=== PATIENT | female | born 1990 | race Caucasian/White ===

== ENCOUNTER 2020-06-12 12:12 | Outpatient (REF) | payer OTHER, SELFPAY ==
[2020-06-12 13:23] LABS: COVID-19 Test Negative (Negative)
== END 2020-06-12 12:13 | disposition home or self-care (01) ==
LOC: HO.LAB 12:12
PROVIDERS: Visit Provider Internal Medicine
DX: Z20.822 Contact with and (suspected) exposure to COVID-19 (principal)
CPT/HCPCS: 36415; 87635; C9803

== ENCOUNTER 2020-11-15 11:54 | Outpatient (REF) | payer OTHER, SELFPAY | END 2020-11-15 11:55 | disposition home or self-care (01) | LOC: HO.LAB 11:54 | PROVIDERS: PCP Internal Medicine; Visit Provider Internal Medicine | DX: Z20.822 Contact with and (suspected) exposure to COVID-19 (principal) | CPT/HCPCS: C9803; U0003; U0005 ==

== ENCOUNTER 2021-08-05 20:10 | Emergency (ER) | payer OTHER, SELFPAY ==
[2021-08-05 20:59] VITALS: BP 136/84; PULSE 60; RESP 18; TEMP 36.8; O2SAT 99; BMI 39.9
[2021-08-05] MEDS: Ketorolac Tromethamine 60 MG/2 ML VIAL IM (22:00)
--- NOTE | 2021-08-05 22:04 | ED.DENTAL ---
HPI - Dental/Oral General Chief complaint: Dental/Oral Stated complaint: chipped tooth, possibly infected Time Seen by Provider: 08/05/21 21:50 Source: patient Mode of arrival: ambulatory Limitations: no limitations History of Present Illness HPI Narrative: Patient comes to the emergency room asking for pain control for his molar pain. Patient has already been seen by urgent care, she was prescribed amoxicillin 500 t.i.d.. Patient has an appointment on . Patient denies pus drainage, no fever chills. Patient states that she chipped a molar biting ice Related Data Previous Rx's Medication Instructions Recorded ketorolac 10 mg tablet 10 mg PO TID PRN pain #10 tabs 08/05/21 Allergies Allergy/AdvReac Type Severity Reaction Status Date / Time No Known Allergies Allergy Unverified 11/04/19 16:13 Review of Systems Review of Systems: Constitutional : No Weight loss, No Fever, No Chills, No Night Sweats, No Fatigue, No Malaise ENT/Mouth : No Hearing loss, No Ear Pain, No Nasal Congestion, No Sinus Pain, No Hoarseness, No sore throat, No Rhinorrhea, No Swallowing Difficulty, complaining of dental pain Eyes: No Eye Pain, No Swelling, No Redness, No Foreign Body, No Discharge, No Vision Changes Cardiovascular : No Chest Pain, No SOB, No Dyspnea on Exertion, No Orthopnea, No Edema, No Palpitations Respiratory : No Cough, No Sputum, No Wheezing, No Smoke Exposure, No Dyspnea Gastrointestinal : No Nausea, No Vomiting, No Diarrhea, No Constipation, No abdominal Pain, No Hematochezia, No Melena Genitourinary : no irregular bleeding, No Dysuria, No Urinary Frequency, No Hematuria, No Urinary Incontinence, No Urgency, No Flank Pain, No Urinary Flow Changes, No Hesitancy Musculoskeletal : No joint pain, No Myalgias, No Joint Swelling Skin : No Skin Lesions, No rash Neuro : No Weakness, No Numbness, No Paresthesias, No Loss of Consciousness, No Dizziness, No Headache Psych : No Anxiety/Panic, No Depression, No SI/HI/AH/VH, No Social Issues, Heme/Lymph: No Bruising, No Bleeding,No Lymphadenopathy Endocrine : No Polyuria, No Polydipsia, No Temperature Intolerance PMFSH Social History Social History Advance Directives: No Advance Directives Information Provided: Yes Physical Exam Vital Signs: Vital Signs: Last Vital Signs Temp 98.3 F 08/05/21 20:59 Pulse 60 08/05/21 20:59 Resp 18 08/05/21 20:59 BP 136/84 08/05/21 20:59 Pulse Ox 99 08/05/21 20:59 O2 Del Method 08/05/21 20:59 BMI result Body Mass Index 39.9 Const: Other: Appearance: Alert. Oriented X3. No acute distress. Eyes: Pupils equal, round and reactive to light. ENT: Pharynx normal. Poor dentition in molars bilaterally maxillary side. Chip more on the left side, no abscess Neck: Normal inspection. Neck supple. No lymph nodes noted. No crepitus CVS: Normal heart rate and rhythm. Pulses normal. Normal S1 and S2 Respiratory: No respiratory distress. Breath sounds normal. No Wheezing. No rales Abdomen: Soft and nontender. No rigidity. No distention. Skin: Skin warm and dry. Normal skin color. Normal skin turgor. Extremities: No lower extremity edema. No Lacerations. No Rash Neuro: Oriented X 3. No motor deficit. No sensory deficit. Moving all extremities. No slurred speech. CN 2 through 12 grossly intact Psych: calm, cooperative, normal affect Course Course Course Narrative: Patient is already on the correct antibiotic. Patient will be given IM Toradol and will receive a prescription as well. Discharge Plan Discharge Clinical Impression: Toothache Patient Disposition: Home, Self-Care Instructions: Toothache (ED) Additional Instructions: Please follow-up with your primary care physician tomorrow. If you have any worsening or new symptoms, please return to the emergency room or call 911 Prescriptions: New ketorolac 10 mg tablet 10 mg PO TID PRN (Reason: pain) Qty: 10 0RF Rx Instructions: Do not use NSAIDs/ibuprofen/Aleve with this medication, only Tylenol for breakthrough pain
== END 2021-08-05 23:03 | disposition home or self-care (01) ==
PROVIDERS: Emergency Provider Emergency Medicine; PCP Internal Medicine
DX: K03.81 Cracked tooth (principal); K08.89 Other specified disorders of teeth and supporting structures
CPT/HCPCS: 96372; 99283; 99284; J1885

== ENCOUNTER 2021-11-20 07:17 | Emergency (ER) | payer OTHER, SELFPAY ==
[2021-11-20 07:23] VITALS: BP 133/82; PULSE 71; RESP 18; TEMP 36.4; O2SAT 100; BMI 33.4
--- NOTE | 2021-11-20 07:42 | ED_ITS ---
HPI - Dental/Oral General Chief complaint: Dental/Oral Stated complaint: abases tooth making face swollen. Time Seen by Provider: 11/20/21 07:37 Source: patient Mode of arrival: ambulatory Limitations: no limitations History of Present Illness HPI Narrative: recurrent dental infections having issues with insurance company to get root canal covered Location: Tooth # (21/22) Onset (ago): day(s) (on and off for weeks worse today ) Duration: worsening Severity: moderate Relieving factors: nothing Exacerbating factors: chewing Context: history of dental caries Associated symptoms: gum swelling Treatment prior to arrival: none Related Data Previous Rx's Medication Instructions Recorded ketorolac 10 mg tablet 10 mg PO TID PRN pain #10 tabs 08/05/21 amoxicillin 875 mg-potassium 1 tab PO BID #14 tabs 11/20/21 clavulanate 125 mg tablet Allergies Allergy/AdvReac Type Severity Reaction Status Date / Time No Known Allergies Allergy Unverified 11/04/19 16:13 Review of Systems Review of Systems: Constitutional : No Fever, No Chills ENT/Mouth : No swallowing difficulty, no change in voice, positive dental pain, positive jaw pain, positive facial swelling Eyes: No Eye Pain, No Swelling Cardiovascular : No Chest Pain, No SOB Respiratory : No Cough, No Sputum Gastrointestinal : No Nausea, No Vomiting, No Diarrhea Genitourinary : No Dysuria Musculoskeletal : No Myalgias Skin : No rash Neuro : No Weakness, No Numbness, No Headache PMFSH Past Medical History Attestation statement: The following information was validated with the patient. Medical History Degenerative disc disease Dental decay Social History Social History (Updated 11/20/21 @ 07:55 by Sherlyn Medina DO) Patient Tobacco Use Status: Tobacco use Unknown Advance Directives: No Advance Directives Information Provided: No Physical Exam Vital Signs: Vital Signs: Last Vital Signs Temp 97.5 F 11/20/21 07:23 Pulse 71 11/20/21 07:23 Resp 18 11/20/21 07:23 BP 133/82 11/20/21 07:23 Pulse Ox 100 11/20/21 07:23 O2 Del Method 11/20/21 07:23 BMI result Body Mass Index 33.4 Appearance: Alert. Oriented X3. No acute distress. Eyes: Pupils equal, round and reactive to light. ENT: L side of face mild swelling, fluctuance mild and hyperemia to L lower gums no shelli abscess felt, no trismus, dental decay noted L lower teeth Neck: Normal inspection. Neck supple. CVS: Normal heart rate and rhythm. Pulses normal. Respiratory: No respiratory distress. Breath sounds normal. Abdomen: Soft and non-tender. Skin: Skin warm and dry. Normal skin color. Extremities: No lower extremity edema. Neuro: Oriented X 3. No motor deficit. No sensory deficit. MDM - Dental/Oral MDM Narrative Medical decision making narrative: 31 yo female recurrent dental infections - new insurance issues with dentist needs root canal. has swelling on L side mild - no concern for deeper space in fection. not toxic, no trismus. will start on augmentin and DC to dentist Discharge Plan Discharge Clinical Impression: Dental infection Patient Disposition: Home, Self-Care Instructions: Dental Abscess (ED) Additional Instructions: return to ED for any worsening symptoms or concerns return if no improvement, worse swelling, fevers take probiotic or yogurt while on antibiotic follow up with dentist as soon as possible Prescriptions: New amoxicillin-pot clavulanate 875-125 mg tablet 1 tab PO BID Qty: 14 0RF No Action ketorolac 10 mg tablet 10 mg PO TID PRN (Reason: pain) Qty: 10 0RF Rx Instructions: Do not use NSAIDs/ibuprofen/Aleve with this medication, only Tylenol for breakthrough pain
== END 2021-11-20 08:38 | disposition home or self-care (01) ==
PROVIDERS: Emergency Provider Emergency Medicine; PCP Internal Medicine
DX: K04.7 Periapical abscess without sinus (principal); Z79.899 Other long term (current) drug therapy
CPT/HCPCS: 99282; 99283

== ENCOUNTER 2022-04-21 12:28 | Emergency (ER) | payer OTHER, SELFPAY ==
[2022-04-21 12:45] VITALS: BP 132/69; PULSE 69; RESP 18; TEMP 36.4; O2SAT 99; BMI 36.8
--- NOTE | 2022-04-21 12:45 | ED_ITS ---
HPI - Headache General Chief Complaint: Headache Stated Complaint: Headache X 1 Wk Time Seen by Provider: 04/21/22 14:14 Related Data Previous Rx's Medication Instructions Recorded ketorolac 10 mg tablet 10 mg PO TID PRN pain #10 tabs 08/05/21 amoxicillin 875 mg-potassium 1 tab PO BID #14 tabs 11/20/21 clavulanate 125 mg tablet [id number]-[id number] 1 cap PO Q6H PRN pain 5 days #20 04/21/22 50 mg-300 mg-40 mg capsule caps (Fioricet) naproxen 500 mg tablet 500 mg PO BID PRN pain 7 days #14 04/21/22 tabs Allergies Allergy/AdvReac Type Severity Reaction Status Date / Time No Known Allergies Allergy Unverified 11/04/19 16:13 [facility] Past Medical History Medical History Degenerative disc disease Dental decay Social History Social History Patient Tobacco Use Status: Tobacco use Unknown Advance Directives: No Advance Directives Information Provided: No Physical Exam Vital Signs: Vital Signs: Last Vital Signs Temp 98 F 04/21/22 18:19 Pulse 75 04/21/22 18:19 Resp 18 04/21/22 12:45 BP 150/87 H 04/21/22 18:19 Pulse Ox 98 04/21/22 18:19 O2 Del Method 04/21/22 18:19 BMI result Body Mass Index 36.8 Course Course Course Narrative: This is a rapid medical exam. Deferred additional HPI, ROS, PE to primary provider. 32 yo female with history of migraines, anxiety, hypothyroidism, DDD, insominia here with complaints of headache radiating to jaw/neck, dizzy, photophobia x 1 week. Not worsened with position changes. Doesn't feel like migraines. Seen by PCP 4 days ago and started on Augmentin with continued symptoms. Will obtain COVID testing, UA/ur preg. VSS. Medications Administered Discontinued Medications Generic Name Dose Route Start Last Admin Trade Name Freq PRN Reason Stop Dose Admin Acetaminophen/Butalbital/Caffeine 2 tab 04/21/22 14:52 04/21/22 16:31 Butalb/Acetamin/Caff 50/325/40 Tablet PO 04/21/22 14:53 2 tab ONCE ONE Administration Diphenhydramine HCl 50 mg 04/21/22 14:51 04/21/22 16:32 Diphenhydramine Hcl 50 Mg/Ml Vial IVPUSH 04/21/22 14:52 50 mg ONCE ONE Administration Ketorolac Tromethamine 30 mg 04/21/22 14:51 04/21/22 16:32 Ketorolac Tromethamine 30 Mg/Ml Vial IVPUSH 04/21/22 14:52 30 mg ONCE ONE Administration Metoclopramide HCl 10 mg 04/21/22 14:51 04/21/22 16:31 Metoclopramide Hcl 10 Mg/2 Ml Vial IVPUSH 04/21/22 14:52 10 mg ONCE ONE Administration Medical Decision Making Lab Data 04/21/22 16:15 04/21/22 16:15 Labs: Lab Results 04/21/22 04/21/22 04/21/22 Range/Units 12:58 14:03 14:03 WBC (4.8-10.8) X10*3/uL RBC (4.20-5.50) X10*6/uL Hgb (12.0-16.0) g/dl Hct (37.0-47.0) % MCV (80.0-98.0) fL MCH (27.0-33.0) pg MCHC (31.0-35.0) g/dl RDW (11.0-16.0) % Plt Count (160-400) X10*3/uL MPV (9.4-12.3) fL Immature Gran % (Auto) (0.0-0.4) % Neut % (Auto) (45-73) % Lymph % (Auto) (20-40) % [place] % (Auto) (2-11) % Eos % (Auto) (0-4) % Baso % (Auto) (0-2) % Lymph # (Auto) (1.2-4.9) X10*3/uL [place] # (Auto) (0.1-1.2) X10*3/uL Eos # (Auto) (0.0-0.4) X10*3/uL Baso # (Auto) (0.0-0.2) X10*3/uL Abs Immat Gran (auto) (0.00-0.03) X10*3/uL Absolute Neuts (auto) (2.0-8.3) x10*3/uL Absolute Nucleated RBC (0.0-0.012) X10*3/uL Nucleated RBC % (auto) (0.0-0.2) /100WBC Sodium (135-145) mmol/L Potassium (3.3-5.1) mmol/L Chloride (96-108) mmol/L Carbon Dioxide (22-29) mmol/L Anion Gap (12-20) BUN (9-16) mg/dL Creatinine (0.5-1.4) mg/dL Estim Creat Clear Calc Estimated GFR Random Glucose (60-115) mg/dL Calcium (8.4-10.2) mg/dL Total Bilirubin (0.0-1.0) mg/dL AST (5-31) U/L ALT (0-31) U/L Alkaline Phosphatase (39-117) U/L Total Protein (6.5-8.0) g/dL Albumin (3.5-5.0) g/dL Urine Color Yellow Urine Appearance Turbid Urine pH 5.5 (5.0-9.0) Ur Specific [place] >= 1.030 H (1.005-1.025) Urine Protein Trace (Neg-Trace) mg/dL Urine Glucose (UA) Negative (Negative) mg/dL Urine Ketones 40 (Negative) mg/dL Urine Blood Negative (Negative) Urine Nitrite Negative (Negative) Ur Leukocyte Esterase Negative (Negative) Urine Test NEGATIVE (NEGATIVE) COVID-19 (MIGUELINA) Negative (Negative) COVID-19 Clin Com See Note 04/21/22 04/21/22 Range/Units 16:15 16:15 WBC 9.8 (4.8-10.8) X10*3/uL RBC 5.22 (4.20-5.50) X10*6/uL Hgb 14.6 (12.0-16.0) g/dl Hct 44.6 (37.0-47.0) % MCV 85.4 (80.0-98.0) fL MCH 28.0 (27.0-33.0) pg MCHC 32.7 (31.0-35.0) g/dl RDW 12.0 (11.0-16.0) % Plt Count 270 (160-400) X10*3/uL MPV 9.9 (9.4-12.3) fL Immature Gran % (Auto) 0.3 (0.0-0.4) % Neut % (Auto) 79.5 H (45-73) % Lymph % (Auto) 15.7 L (20-40) % [place] % (Auto) 3.4 (2-11) % Eos % (Auto) 0.3 (0-4) % Baso % (Auto) 0.8 (0-2) % Lymph # (Auto) 1.5 (1.2-4.9) X10*3/uL [place] # (Auto) 0.3 (0.1-1.2) X10*3/uL Eos # (Auto) 0.0 (0.0-0.4) X10*3/uL Baso # (Auto) 0.1 (0.0-0.2) X10*3/uL Abs Immat Gran (auto) 0.03 (0.00-0.03) X10*3/uL Absolute Neuts (auto) 7.8 (2.0-8.3) x10*3/uL Absolute Nucleated RBC 0.000 (0.0-0.012) X10*3/uL Nucleated RBC % (auto) 0.0 (0.0-0.2) /100WBC Sodium 140 (135-145) mmol/L Potassium 4.5 (3.3-5.1) mmol/L Chloride 107 (96-108) mmol/L Carbon Dioxide 20 L (22-29) mmol/L Anion Gap 18 (12-20) BUN 14 (9-16) mg/dL Creatinine 0.72 (0.5-1.4) mg/dL Estim Creat Clear Calc 144.2 Estimated GFR > 60 Random Glucose 90 (60-115) mg/dL Calcium 9.5 (8.4-10.2) mg/dL Total Bilirubin 0.4 (0.0-1.0) mg/dL AST 13 (5-31) U/L ALT 14 (0-31) U/L Alkaline Phosphatase 82 (39-117) U/L Total Protein 7.1 (6.5-8.0) g/dL Albumin 4.4 (3.5-5.0) g/dL Urine Color Urine Appearance Urine pH (5.0-9.0) Ur Specific [place] (1.005-1.025) Urine Protein (Neg-Trace) mg/dL Urine Glucose (UA) (Negative) mg/dL Urine Ketones (Negative) mg/dL Urine Blood (Negative) Urine Nitrite (Negative) Ur Leukocyte Esterase (Negative) Urine Test (NEGATIVE) COVID-19 (MIGUELINA) (Negative) COVID-19 Clin Com Discharge Plan Discharge Clinical Impression: Migraine, Headache Patient Disposition: Home, Self-Care Instructions: Migraine Headache (ED), General Headache (ED) Additional Instructions: Please follow-up with the primary care provider. Blood work came back normal. Also follow-up with neurologist to see if she need a change to your migraine cocktail. Return to the ED immediately for any worsening headache, nausea, vomiting, neck stiffness, fever, chills, facial droop, paralysis of extremities, loss of vision, slurred speech, rash or any other concerning symptoms. Prescriptions: New naproxen 500 mg tablet 500 mg PO BID PRN (Reason: pain) 7 Days Qty: 14 0RF fubhkhgpwy-uxwhsnislntno-imiu [Fioricet] 50-300-40 mg capsule 1 cap PO Q6H PRN (Reason: pain) 5 Days Qty: 20 0RF No Action ketorolac 10 mg tablet 10 mg PO TID PRN (Reason: pain) Qty: 10 0RF Rx Instructions: Do not use NSAIDs/ibuprofen/Aleve with this medication, only Tylenol for breakthrough pain amoxicillin-pot clavulanate 875-125 mg tablet 1 tab PO BID Qty: 14 0RF Stand Alone Forms: Work/School Release Interventions: ED Discharge Assessment Last Done: 04/21/22 18:37 Discharge Date/Time: 04/21/22 18:38 Print Language: [place]uran
[2022-04-21 13:18] LABS: COVID-19 Test Negative (Negative); IDNOW Serial# BCCEAD1C
[2022-04-21 14:12] LABS: Appearance Urine Turbid; Color Urine Yellow; Glucose Urine UA Negative (Negative); Leukocyte Esterase Urine Negative (Negative); Nitrite Urine Negative (Negative); PH 5.5 (5.0-9.0); Specific Gravity - Urine >= 1.030 (1.005-1.025); Urine Blood Negative (Negative); Urine Ketones 40 mg/dL (Negative); Urine Protein Trace mg/dL (Neg-Trace)
[2022-04-21 14:13] LABS: UPreg QC Valid YES; Urine Pregnancy NEGATIVE (NEGATIVE)
--- NOTE | 2022-04-21 15:18 | ED.GENADULT ---
HPI - General Adult General Chief complaint: Headache Stated complaint: Headache X 1 Wk Time Seen by Provider: 04/21/22 14:14 Source: patient Mode of arrival: ambulatory Limitations: no limitations History of Present Illness HPI narrative: 32 yold female with pmh of migraine presents to the ED for headache, photophobia intermittently over the past week. Patient states she was taking migraine medication and would approve and than headache returned return. Patient denies any chest pain, shortness of breath, rash, fever, chills, neck stiffness, recent head trauma, or IV drug use. Patient denies any past medical history of HIV hepatitis C or any other immunocompromise diseases. Patient states history of migraine Related Data Previous Rx's Medication Instructions Recorded ketorolac 10 mg tablet 10 mg PO TID PRN pain #10 tabs 08/05/21 amoxicillin 875 mg-potassium 1 tab PO BID #14 tabs 11/20/21 clavulanate 125 mg tablet bsorokogzh-covwntftsraal-eiumuami 1 cap PO Q6H PRN pain 5 days #20 04/21/22 50 mg-300 mg-40 mg capsule caps (Fioricet) naproxen 500 mg tablet 500 mg PO BID PRN pain 7 days #14 04/21/22 tabs Allergies Allergy/AdvReac Type Severity Reaction Status Date / Time No Known Allergies Allergy Unverified 11/04/19 16:13 Review of Systems Review of Systems: headache and photophobia Yes all other systems are reviewed and are negative [facility] Past Medical History Medical History Degenerative disc disease Dental decay Social History Social History (Updated 11/20/21 @ 07:55 by Sherlyn Medina DO) Patient Tobacco Use Status: Tobacco use Unknown Advance Directives: No Advance Directives Information Provided: No Physical Exam ED Vital Signs: Vital Signs - 24 hr 04/21/22 12:45 Temperature 97.5 F Pulse Rate 69 Respiratory Rate 18 Blood Pressure 132/69 Pulse Oximetry 99 Oxygen Delivery Method Room Air BMI result Body Mass Index 36.8 Const General: cooperative, healthy appearing, comfortable, no acute distress, well developed, alert, awake and Physically active Orientation/consciousness: oriented to person, oriented to place, oriented to time and patient oriented x3 HENMT Head: Yes normal to inspection, Yes No palpable skull fracture present, Yes normocephalic, Yes atraumatic and No abrasion Eyes Other: positive for photophobia General: appearance normal, both eyes and all related structures Neck Neck: Yes normal visual inspection, Yes full ROM, Yes no lymphadenopathy, Yes no meningeal signs, Yes trachea midline, Yes supple, No anterior neck swelling, No midline deformity, No positive Brudzinski's sign, No positive Kernig's sign and No tender Chest Chest palpation & inspection: normal inspection of the chest and normal palpation of entire chest wall Resp Effort & Inspection: normal respiratory effort and able to speak in complete sentences Auscultation: clear to auscultation bilaterally Cardio Jugular venous distension: no JVD Heart sounds: S1 normal heart sound present and S2 normal heart sound present GI Inspection: Yes normal to inspection and No abdominal wall ecchymosis Palpation (GI): Soft to palpation, not firm, nontender, no guarding and not rigid General: No CVA tenderness and Yes no CVA tenderness Back/Spine/Pelvis Back: no CVA tenderness, No CVA tenderness and No back tenderness Skin General skin exam: no rashes or lesions noted and elasticity normal Neuro Other: Negative for any neuro deficits General: oriented to person, oriented to place, oriented to time, patient oriented x3, gait normal, tone normal, moves all extremities, Normal light touch and pain sensation, no meningeal signs, no focal motor deficits, CN's II-XI intact bilaterally, normal sensation to monofilament and deep tendon reflexes 2+ bilaterally Extrem General: Yes normal to inspection and Yes full ROM Psych Appearance: grossly normal, well kempt and not disheveled Course Course Course Narrative: History physical exam does not indicate meningitis. History physical exam indicates migraine exacerbation. Patient has history of migraines. Will order IV migraine cocktail and basic labs. No need for head CT scan patient does not have any recent trauma, does not have any neuro deficits, and has known history of headache with photophobia. Reevaluation(s) Reevaluation #1: Labs are normal. Patient's headache and photophobia resolved with Toradol, Benadryl, and Reglan and Fioricet. Not suspecting meningitis or encephalitis. Not suspecting brain bleed. NIH score 0. Not suspecting stroke. No indication for Head CT or LP. Time: 18:12 Medications Administered Discontinued Medications Generic Name Dose Route Start Last Admin Trade Name Freq PRN Reason Stop Dose Admin Acetaminophen/Butalbital/Caffeine 2 tab 04/21/22 14:52 04/21/22 16:31 Butalb/Acetamin/Caff 50/325/40 Tablet PO 04/21/22 14:53 2 tab ONCE ONE Administration Diphenhydramine HCl 50 mg 04/21/22 14:51 04/21/22 16:32 Diphenhydramine Hcl 50 Mg/Ml Vial IVPUSH 04/21/22 14:52 50 mg ONCE ONE Administration Ketorolac Tromethamine 30 mg 04/21/22 14:51 04/21/22 16:32 Ketorolac Tromethamine 30 Mg/Ml Vial IVPUSH 04/21/22 14:52 30 mg ONCE ONE Administration Metoclopramide HCl 10 mg 04/21/22 14:51 04/21/22 16:31 Metoclopramide Hcl 10 Mg/2 Ml Vial IVPUSH 04/21/22 14:52 10 mg ONCE ONE Administration Medical Decision Making Medical Decision Making [facility] Narrative: 82-year-old female presents to ED with headache and photophobia. Patient has history of migraine and presenting as migraine exacerbation. Neuro exam intact. Labs normal. Patient is not toxic appearing. Did not have any recent head trauma. Differential Diagnosis Differential Diagnoses: The differential diagnosis associated with the presentation includes (Migraine exacerbation, COVID,) Admission/Observation Consideration of admission/observation: Escalation of care including admission/observation considered Lab Data [facility] Lab Attestation statement: I reviewed the patient's lab results. 04/21/22 16:15 04/21/22 16:15 Labs: Lab Results 04/21/22 04/21/22 04/21/22 Range/Units 12:58 14:03 14:03 WBC (4.8-10.8) X10*3/uL RBC (4.20-5.50) X10*6/uL Hgb (12.0-16.0) g/dl Hct (37.0-47.0) % MCV (80.0-98.0) fL MCH (27.0-33.0) pg MCHC (31.0-35.0) g/dl RDW (11.0-16.0) % Plt Count (160-400) X10*3/uL MPV (9.4-12.3) fL Immature Gran % (Auto) (0.0-0.4) % Neut % (Auto) (45-73) % Lymph % (Auto) (20-40) % [place] % (Auto) (2-11) % Eos % (Auto) (0-4) % Baso % (Auto) (0-2) % Lymph # (Auto) (1.2-4.9) X10*3/uL [place] # (Auto) (0.1-1.2) X10*3/uL Eos # (Auto) (0.0-0.4) X10*3/uL Baso # (Auto) (0.0-0.2) X10*3/uL Abs Immat Gran (auto) (0.00-0.03) X10*3/uL Absolute Neuts (auto) (2.0-8.3) x10*3/uL Absolute Nucleated RBC (0.0-0.012) X10*3/uL Nucleated RBC % (auto) (0.0-0.2) /100WBC Sodium (135-145) mmol/L Potassium (3.3-5.1) mmol/L Chloride (96-108) mmol/L Carbon Dioxide (22-29) mmol/L Anion Gap (12-20) BUN (9-16) mg/dL Creatinine (0.5-1.4) mg/dL Estim Creat Clear Calc Estimated GFR Random Glucose (60-115) mg/dL Calcium (8.4-10.2) mg/dL Total Bilirubin (0.0-1.0) mg/dL AST (5-31) U/L ALT (0-31) U/L Alkaline Phosphatase (39-117) U/L Total Protein (6.5-8.0) g/dL Albumin (3.5-5.0) g/dL Urine Color Yellow Urine Appearance Turbid Urine pH 5.5 (5.0-9.0) Ur Specific [place] >= 1.030 H (1.005-1.025) Urine Protein Trace (Neg-Trace) mg/dL Urine Glucose (UA) Negative (Negative) mg/dL Urine Ketones 40 (Negative) mg/dL Urine Blood Negative (Negative) Urine Nitrite Negative (Negative) Ur Leukocyte Esterase Negative (Negative) Urine Test NEGATIVE (NEGATIVE) COVID-19 (MIGUELINA) Negative (Negative) COVID-19 Clin Com See Note 04/21/22 04/21/22 Range/Units 16:15 16:15 WBC 9.8 (4.8-10.8) X10*3/uL RBC 5.22 (4.20-5.50) X10*6/uL Hgb 14.6 (12.0-16.0) g/dl Hct 44.6 (37.0-47.0) % MCV 85.4 (80.0-98.0) fL MCH 28.0 (27.0-33.0) pg MCHC 32.7 (31.0-35.0) g/dl RDW 12.0 (11.0-16.0) % Plt Count 270 (160-400) X10*3/uL MPV 9.9 (9.4-12.3) fL Immature Gran % (Auto) 0.3 (0.0-0.4) % Neut % (Auto) 79.5 H (45-73) % Lymph % (Auto) 15.7 L (20-40) % [place] % (Auto) 3.4 (2-11) % Eos % (Auto) 0.3 (0-4) % Baso % (Auto) 0.8 (0-2) % Lymph # (Auto) 1.5 (1.2-4.9) X10*3/uL [place] # (Auto) 0.3 (0.1-1.2) X10*3/uL Eos # (Auto) 0.0 (0.0-0.4) X10*3/uL Baso # (Auto) 0.1 (0.0-0.2) X10*3/uL Abs Immat Gran (auto) 0.03 (0.00-0.03) X10*3/uL Absolute Neuts (auto) 7.8 (2.0-8.3) x10*3/uL Absolute Nucleated RBC 0.000 (0.0-0.012) X10*3/uL Nucleated RBC % (auto) 0.0 (0.0-0.2) /100WBC Sodium 140 (135-145) mmol/L Potassium 4.5 (3.3-5.1) mmol/L Chloride 107 (96-108) mmol/L Carbon Dioxide 20 L (22-29) mmol/L Anion Gap 18 (12-20) BUN 14 (9-16) mg/dL Creatinine 0.72 (0.5-1.4) mg/dL Estim Creat Clear Calc 144.2 Estimated GFR > 60 Random Glucose 90 (60-115) mg/dL Calcium 9.5 (8.4-10.2) mg/dL Total Bilirubin 0.4 (0.0-1.0) mg/dL AST 13 (5-31) U/L ALT 14 (0-31) U/L Alkaline Phosphatase 82 (39-117) U/L Total Protein 7.1 (6.5-8.0) g/dL Albumin 4.4 (3.5-5.0) g/dL Urine Color Urine Appearance Urine pH (5.0-9.0) Ur Specific [place] (1.005-1.025) Urine Protein (Neg-Trace) mg/dL Urine Glucose (UA) (Negative) mg/dL Urine Ketones (Negative) mg/dL Urine Blood (Negative) Urine Nitrite (Negative) Ur Leukocyte Esterase (Negative) Urine Test (NEGATIVE) COVID-19 (MIGUELINA) (Negative) COVID-19 Clin Com Prescription Management I considered prescription management with: Pain Medication and Other (Fioricet) Discharge Plan Discharge Clinical Impression: Migraine, Headache Patient Disposition: Home, Self-Care Instructions: Migraine Headache (ED), General Headache (ED) Additional Instructions: Please follow-up with the primary care provider. Blood work came back normal. Also follow-up with neurologist to see if she need a change to your migraine cocktail. Return to the ED immediately for any worsening headache, nausea, vomiting, neck stiffness, fever, chills, facial droop, paralysis of extremities, loss of vision, slurred speech, rash or any other concerning symptoms. Prescriptions: New naproxen 500 mg tablet 500 mg PO BID PRN (Reason: pain) 7 Days Qty: 14 0RF khqbsiftwu-wzzkielsajjkh-ypjy [Fioricet] 50-300-40 mg capsule 1 cap PO Q6H PRN (Reason: pain) 5 Days Qty: 20 0RF No Action ketorolac 10 mg tablet 10 mg PO TID PRN (Reason: pain) Qty: 10 0RF Rx Instructions: Do not use NSAIDs/ibuprofen/Aleve with this medication, only Tylenol for breakthrough pain amoxicillin-pot clavulanate 875-125 mg tablet 1 tab PO BID Qty: 14 0RF Stand Alone Forms: Work/School Release Discharge Date/Time: 04/21/22 18:38 Print Language: Salvadorean
[2022-04-21 16:18] LABS: MANUAL DIFF FLAG NO
[2022-04-21 16:20] LABS: Basophils Absolute Auto 0.1 X10*3/uL (0.0-0.2); Basophils Percent Auto 0.8 % (0-2); Eosinophils Percent Auto 0.3 % (0-4); Hematocrit 44.6 % (37.0-47.0); Hemoglobin 14.6 g/dl (12.0-16.0); Imm Gran Abs Auto 0.03 X10*3/uL (0.00-0.03); Imm Gran Pct Auto 0.3 % (0.0-0.4); Lymphocytes Absolute Auto 1.5 X10*3/uL (1.2-4.9); Lymphocytes Percent Auto 15.7 % (20-40); Mean Corpuscular HGB Conc 32.7 g/dl (31.0-35.0); Mean Corpuscular Volume 85.4 fL (80.0-98.0); Mean Platelet Volume 9.9 fL (9.4-12.3); Monocytes Absolute Auto 0.3 X10*3/uL (0.1-1.2); Monocytes Percent Auto 3.4 % (2-11); Neutrophils Absolute Auto 7.8 x10*3/uL (2.0-8.3); Neutrophils Percent Auto 79.5 % (45-73); Platelet Count 270 X10*3/uL (160-400); Red Blood Count 5.22 X10*6/uL (4.20-5.50); White Blood Count 9.8 X10*3/uL (4.8-10.8)
[2022-04-21] MEDS: Metoclopramide HCl 10 MG/2 ML VIAL IVPUSH (16:31)
[2022-04-21] MEDS: Butalb/Acetamin/Caff 50/325/40 TABLET 2 TAB PO (16:31)
[2022-04-21] MEDS: Ketorolac Tromethamine 30 MG/ML VIAL IVPUSH (16:32)
[2022-04-21] MEDS: diphenhydrAMINE HCL 50 MG/ML VIAL IVPUSH (16:32)
[2022-04-21 16:45] LABS: Alanine Aminotransferase 14 U/L (0-31); Albumin Level 4.4 g/dL (3.5-5.0); Alkaline Phosphatase 82 U/L (39-117); Anion Gap 18 (12-20); Aspartate Amino Transferase 13 U/L (5-31); Bilirubin Total 0.4 mg/dL (0.0-1.0); Blood Urea Nitrogen 14 mg/dL (9-16); Calcium 9.5 mg/dL (8.4-10.2); Carbon Dioxide 20 mmol/L (22-29); Chloride 107 mmol/L (96-108); Creatinine Clr Calc Pharmacy 144.2; Estimated Glomerular Filt Rate > 60; Glucose Random 90 mg/dL (60-115); Potassium 4.5 mmol/L (3.3-5.1); Sodium 140 mmol/L (135-145); Total Protein 7.1 g/dL (6.5-8.0)
[2022-04-21 18:19] VITALS: BP 150/87; PULSE 75; TEMP 36.6; O2SAT 98
== END 2022-04-21 18:38 | disposition home or self-care (01) ==
PROVIDERS: Nurse Practitioner Family; Physician Assistant; Emergency Provider Emergency Medicine; PCP Internal Medicine
DX: G43.909 Migraine, unspecified, not intractable, without status migrainosus (principal); Z20.822 Contact with and (suspected) exposure to COVID-19; Z20.828 Contact with and (suspected) exposure to other viral communicable diseases; Z79.899 Other long term (current) drug therapy
CPT/HCPCS: 36415; 80053; 81003; 81025; 85025; 87635; 96374; 96375; 99284; J1200; J1885; J2765

== ENCOUNTER 2022-04-23 08:38 | Emergency (ER) | payer OTHER, SELFPAY ==
--- NOTE | 2022-04-23 | ECG_ITS ---
Test Reason : cp Blood Pressure : / mmHG Vent. Rate : 081 BPM Atrial Rate : 081 BPM P-R Int : 144 ms QRS Dur : 072 ms QT Int : 362 ms P-R-T Axes : 042 003 022 degrees QTc Int : 420 ms Normal sinus rhythm with sinus arrhythmia Normal ECG No previous ECGs available Referred By: Generic ED Physician Electronically Signed By:BART TRENT
--- NOTE | ~2022-04-23 | CT_ITS ---
EXAMINATION: CT HEAD WITHOUT CONTRAST CLINICAL INFORMATION: Headache and dizziness COMPARISON: None. TECHNIQUE: Contiguous axial imaging was performed from the skull base to vertex without intravenous contrast. This CT examination was performed using dose optimization techniques as appropriate, variously including the following: * Automated exposure control * Adjustment of mA and/or kV according to patient size (this includes techniques or standardized protocols for targeted exams where dose is matched to indication/reason for exam; i.e. extremities or head) Use of iterative reconstruction technique DLP: 661 mGy-cm. FINDINGS: There is no evidence of acute intracranial hemorrhage or territorial infarction. No abnormal mass effect or midline shift is seen. Kruger to white matter differentiation is well preserved. No extra-axial fluid collections are identified. No hydrocephalus. No significant volume loss. There is no abnormal attenuation within the brain parenchyma. The osseous structures and soft tissues are normal. The mastoid air cells and visualized portions of the paranasal sinuses are well aerated. CT/CT head/brain wo IV con IMPRESSION: No acute intracranial pathology.
--- NOTE | ~2022-04-23 | XR_ITS ---
EXAMINATION: XR CHEST CLINICAL INFORMATION: Chest pain. COMPARISON: 08/30/2010 chest radiograph. TECHNIQUE: Frontal view of the chest was obtained. FINDINGS: No significant abnormality is noted involving the heart, lungs, mediastinum, bony thorax or soft tissues. XR/XR chest 1V IMPRESSION: No acute cardiopulmonary process.
[2022-04-23 08:43] VITALS: BP 143/74; PULSE 88; RESP 20; TEMP 37.6; O2SAT 99; BMI 36.5
[2022-04-23 09:02] LABS: MANUAL DIFF FLAG NO
[2022-04-23 09:05] LABS: Basophils Absolute Auto 0.1 X10*3/uL (0.0-0.2); Basophils Percent Auto 0.9 % (0-2); Eosinophils Percent Auto 0.2 % (0-4); Hematocrit 42.1 % (37.0-47.0); Imm Gran Abs Auto 0.03 X10*3/uL (0.00-0.03); Imm Gran Pct Auto 0.4 % (0.0-0.4); Lymphocytes Absolute Auto 1.4 X10*3/uL (1.2-4.9); Lymphocytes Percent Auto 16.8 % (20-40); Mean Corpuscular HGB Conc 33.3 g/dl (31.0-35.0); Mean Corpuscular Hemoglobin 28.3 pg (27.0-33.0); Mean Corpuscular Volume 85.2 fL (80.0-98.0); Monocytes Absolute Auto 0.3 X10*3/uL (0.1-1.2); Monocytes Percent Auto 3.7 % (2-11); Neutrophils Absolute Auto 6.4 x10*3/uL (2.0-8.3); Platelet Count 274 X10*3/uL (160-400); Red Blood Count 4.94 X10*6/uL (4.20-5.50); Red Cell Distribution Width 12.2 % (11.0-16.0); White Blood Count 8.2 X10*3/uL (4.8-10.8)
[2022-04-23 09:09] LABS: INTERNATIONAL NORM RATIO 0.9 (0.9-1.1); Prothrombin Time 10.6 SEC (10.0-13.1)
[2022-04-23 09:17] LABS: COVID-19 Test Negative (Negative); IDNOW Serial# 16C4AD1C
[2022-04-23 09:21] LABS: Alanine Aminotransferase 12 U/L (0-31); Albumin Level 4.3 g/dL (3.5-5.0); Alkaline Phosphatase 77 U/L (39-117); Anion Gap 16 (12-20); Aspartate Amino Transferase 10 U/L (5-31); Bilirubin Total 0.2 mg/dL (0.0-1.0); Blood Urea Nitrogen 10 mg/dL (9-16); Calcium 9.4 mg/dL (8.4-10.2); Carbon Dioxide 21 mmol/L (22-29); Chloride 107 mmol/L (96-108); Creatinine Clr Calc Pharmacy 132.6; Estimated Glomerular Filt Rate > 60; Glucose Random 109 mg/dL (60-115); Potassium 3.9 mmol/L (3.3-5.1); Sodium 140 mmol/L (135-145); Total Protein 6.9 g/dL (6.5-8.0)
[2022-04-23 09:28] LABS: Troponin-I High Sensitivity < 3.5 ng/L (<3.5-17.0)
--- NOTE | 2022-04-23 12:03 | ED.CHESTPAIN ---
HPI - Chest Pain General Chief Complaint: Chest Pain Stated Complaint: Chest pain/L side numbness Time Seen by Provider: 04/23/22 12:03 Source: patient Mode of arrival: ambulatory Limitations: no limitations History of Present Illness HPI narrative: Pt is a 32 y/o female with history of a headache lasting 10 days now, cc burning chest pain and tingling in left hand and left foot that started today. Pt explains she was seen by her PCP last who she states said her headache symptoms seemed sinus related but there was no physical exam signs of nasal or ear issues. She then came to the ED on Friday because the headache continued. She states that she had an Xray and was given medications and fluids, but only her nausea was resolved with the treatment. She also states her insurance did not cover the migraine medicine she was prescribed for the headache, so she did not start on it. She is no longer having the burning chest pain but still has the tingling in her hand and foot. She describes her headache as consistently on the right side and behind the eye with photosensitivity and accompanied nausea. She denies fevers, chills, sob, new back pain, neck pain, recent trauma, dizziness, syncope, vomiting, loss of balance or unilateral weakness Severity: mild Relieving factors: nothing Exacerbating factors: nothing Associated symptoms: nausea Treatment prior to arrival: none Risk Factors Coronary artery disease risk factors: none Thoracic aortic dissection risk factors: none Related Data Previous Rx's Medication Instructions Recorded ketorolac 10 mg tablet 10 mg PO TID PRN pain #10 tabs 08/05/21 amoxicillin 875 mg-potassium 1 tab PO BID #14 tabs 11/20/21 clavulanate 125 mg tablet bfxflfdtgs-hcttqnbydsrgg-whmlzxzt 1 cap PO Q6H PRN pain 5 days #20 04/21/22 50 mg-300 mg-40 mg capsule caps (Fioricet) naproxen 500 mg tablet 500 mg PO BID PRN pain 7 days #14 04/21/22 tabs Allergies Allergy/AdvReac Type Severity Reaction Status Date / Time No Known Allergies Allergy Unverified 11/04/19 16:13 Review of Systems Constitutional: Constitutional: Reports no additional constitutional complaints, Denies chills, Denies fever(s), Reports headache(s) and Denies night sweats Eyes: Eyes: Reports no additional eye complaints, Denies blurry vision, Denies change in vision, Denies diplopia, Denies eye discharge, Denies loss of vision and Denies eye pain ENT: Denies dizziness, Reports headache(s), Denies nasal congestion, Denies nasal discharge and Denies neck pain Cardiovascular: Cardiovascular: Reports no additional cardiovascular complaints, Reports chest pain (now resolved), Denies lightheadedness, Denies Loss of Consciousness and Denies dyspnea Respiratory: Respiratory: Reports no additional respiratory complaints and Denies dyspnea Comments: Holds her breath with the headache. Gastrointestinal: Gastrointestinal: Reports no additional gastrointestinal complaints, Denies abdominal pain, Denies melena, Denies hematochezia, Denies change in bowel habits and Denies change in stool character Genitourinary: Genitourinary: Denies hematuria, Denies urinary frequency, Denies dysuria, Denies urinary incontinence, Denies urinary hesitancy and Denies urinary urgency Musculoskeletal: Musculoskeletal: Reports no additional musculoskeletal complaints, Denies neck pain, Denies numbness and Reports tingling Neurologic: Denies dizziness, Reports headache(s), Denies loss of vision, Denies numbness and Reports tingling Psychiatric: Psychiatric: Reports no additional psychiatric complaints Endocrine: Endocrine: Reports no additional endocrine complaints Hematologic/Lymphatic: Hematologic/Lymphatic: Reports no additional hematologic/lymphatic complaints Allergic/Immunologic: Allergic/Immunologic: Reports no additional allergic/immunologic complaints PMFSH Past Medical History Attestation statement: The following information was validated with the patient. Source: old records reviewed and nursing notes reviewed Medical History Degenerative disc disease Dental decay Social History Social History Patient Tobacco Use Status: Tobacco use Unknown Advance Directives: No Advance Directives Information Provided: No Physical Exam Vital Signs: Vital Signs: Last Vital Signs Temp 98.2 F 04/23/22 16:00 Pulse 69 04/23/22 16:00 Resp 16 04/23/22 16:00 BP 117/61 04/23/22 16:00 Pulse Ox 98 04/23/22 16:00 O2 Del Method 04/23/22 16:00 BMI result Body Mass Index 36.5 Const: General: cooperative, no acute distress, alert and awake Nutritional Appearance: well nourished Orientation/consciousness: patient oriented x3 Limitations: no limitations HEENT: Head: Yes normal to inspection and Yes atraumatic Ears: hearing grossly normal bilaterally and external ears normal General nose exam: Normal external nose present, no nasal discharge noted and no epistaxis Face and sinus: Yes normal facial exam, No abrasion and No laceration Mouth: Normal oral and palatal mucosa present, no drooling and no muffled voice Eyes: General: appearance normal, both eyes and all related structures Periorbital: periorbital findings normal Eyelids: Yes eyelids normal Conjunctivae: conjunctivae normal Pupils: Equal, round and reactive pupils present EOM: EOMs intact bilaterally Neck: Neck: Yes normal visual inspection, Yes full ROM and Yes no lymphadenopathy Chest: Chest palpation & inspection: normal inspection of the chest Resp: Effort & Inspection: normal respiratory effort and able to speak in complete sentences Auscultation: clear to auscultation bilaterally Cardio: Rate: regular rate Rhythm: regular rhythm GI: Inspection: Yes normal to inspection Neuro: General: patient oriented x3 and moves all extremities Cranial nerves: Yes Equal, round and reactive pupils present Cognition (Neuro): normal cognition Motor exam (neuro): 5/5 motor strength present throughout Sensory Exam: Normal double simultaneous stimulation for sensation Coordination: [id number] test normal Extrem: General: Yes normal to inspection, Yes full ROM and Yes capillary refill normal Psych: Appearance: grossly normal Mental Status: mental status grossly normal Affect: normal affect Attitude: cooperative Thought process: Normal thought process present Thought content: Normal thought content present Insight: Good insight present (Psych) NIH Stroke Scale Internal: Initial- Upon Arrival Time: 12:03 Level of Consciousness: Alert Level of Consciousness Questions: Answers both questions correctly Level of Consciousness Commands: Performs both tasks correctly Best Gaze: Normal Visual: No visual loss Facial Palsy: Normal Motor Arm (Right): No drift Motor Arm (Left): No drift Motor Leg (Right): No drift Motor Leg (Left): No drift Limb Ataxia: Absent Sensory: Normal Best Language: No aphasia Dysarthia: Normal Extinction and Inattention: No abnormality Score: 0 Medications Administered Discontinued Medications Generic Name Dose Route Start Last Admin Trade Name Freq PRN Reason Stop Dose Admin Acetaminophen/Butalbital/Caffeine 1 tab 04/23/22 15:31 04/23/22 15:50 Butalb/Acetamin/Caff 50/325/40 Tablet PO 04/23/22 15:32 1 tab ONCE ONE Administration Dexamethasone Sodium Phosphate 10 mg 04/23/22 13:54 04/23/22 14:18 Dexamethasone Sod Phosphate 10 Mg/Ml Vial IVPUSH 04/23/22 13:55 10 mg ONCE ONE Administration Hydromorphone HCl 1 mg 04/23/22 13:02 04/23/22 13:26 Hydromorphone Hcl 1 Mg/Ml Syringe IVPUSH 04/23/22 13:03 1 mg ONCE ONE Administration Protocol Sodium Chloride 1,000 mls @ 999 mls/hr 04/23/22 13:15 04/23/22 14:55 Ns IV 04/23/22 14:15 Infused .Q1H1M DEB Infusion Magnesium Sulfate/Dextrose 1 gm in 100 mls @ 100 mls/hr 04/23/22 13:54 04/23/22 15:25 Magnesium Sulfate/D5w IV 04/23/22 14:53 Infused ONCE ONE Infusion Ondansetron HCl 4 mg 04/23/22 13:02 04/23/22 13:26 Ondansetron Hcl 4 Mg/2 Ml Vial IVPUSH 04/23/22 13:03 4 mg ONCE ONE Administration Medical Decision Making Medical Decision Making [facility] Narrative: Patient is a 32 year old assigned female at with a history of migraines presenting to the emergency department today with a persistent right sided headache and left sided numbness ad tingling to the hand and foot. Patient's physical exam was unremarkable. Patient's blood work was unremarkable. Patient's EKG was unremarkable. Patient's head CT showed no acute process. I explained my physical exam findings as well as all test results to the patient. I answered all questions asked by the patient. Patient received IV fluids, mag, decadron, dilaudid, and PO fiorcet which she stated helped her symptoms significantly. I stressed the importance of the patient taking her medication as prescribed. I stressed the importance of the patient following up with her primary care provider and her neurologist. I stressed the importance of the patient returning to the emergency department immediately if her symptoms were to worsen or if she were to develop any dizziness, shortness of breath, difficulty breathing, chest pain, blurry vision, loss of vision, nausea, vomiting, abdominal pain, fever, chills, back pain, or any other complaints. Patient verbalized agreement and understanding with this treatment plan and discharge. Differential Diagnosis Differential Diagnoses: The differential diagnosis associated with the presentation includes migraine Lab Data MDM Lab Attestation statement: I reviewed the patient's lab results. 04/23/22 08:57 04/23/22 08:57 Labs: Lab Results 04/23/22 04/23/22 04/23/22 Range/Units 08:56 08:56 08:57 WBC 8.2 (4.8-10.8) X10*3/uL RBC 4.94 (4.20-5.50) X10*6/uL Hgb 14.0 (12.0-16.0) g/dl Hct 42.1 (37.0-47.0) % MCV 85.2 (80.0-98.0) fL MCH 28.3 (27.0-33.0) pg MCHC 33.3 (31.0-35.0) g/dl RDW 12.2 (11.0-16.0) % Plt Count 274 (160-400) X10*3/uL MPV 10.0 (9.4-12.3) fL Immature Gran % (Auto) 0.4 (0.0-0.4) % Neut % (Auto) 78.0 H (45-73) % Lymph % (Auto) 16.8 L (20-40) % Davis % (Auto) 3.7 (2-11) % Eos % (Auto) 0.2 (0-4) % Baso % (Auto) 0.9 (0-2) % Lymph # (Auto) 1.4 (1.2-4.9) X10*3/uL Davis # (Auto) 0.3 (0.1-1.2) X10*3/uL Eos # (Auto) 0.0 (0.0-0.4) X10*3/uL Baso # (Auto) 0.1 (0.0-0.2) X10*3/uL Abs Immat Gran (auto) 0.03 (0.00-0.03) X10*3/uL Absolute Neuts (auto) 6.4 (2.0-8.3) x10*3/uL Absolute Nucleated RBC 0.000 (0.0-0.012) X10*3/uL Nucleated RBC % (auto) 0.0 (0.0-0.2) /100WBC PT (10.0-13.1) SEC INR (0.9-1.1) Sodium (135-145) mmol/L Potassium (3.3-5.1) mmol/L Chloride (96-108) mmol/L Carbon Dioxide (22-29) mmol/L Anion Gap (12-20) BUN (9-16) mg/dL Creatinine (0.5-1.4) mg/dL Estim Creat Clear Calc Estimated GFR Random Glucose (60-115) mg/dL Calcium (8.4-10.2) mg/dL Total Bilirubin (0.0-1.0) mg/dL AST (5-31) U/L ALT (0-31) U/L Alkaline Phosphatase (39-117) U/L Troponin I High Sens < 3.5 (<3.5-17.0) ng/L Total Protein (6.5-8.0) g/dL Albumin (3.5-5.0) g/dL COVID-19 (MIGUELINA) Negative (Negative) COVID-19 Clin Com See Note 04/23/22 04/23/22 Range/Units 08:57 08:57 WBC (4.8-10.8) X10*3/uL RBC (4.20-5.50) X10*6/uL Hgb (12.0-16.0) g/dl Hct (37.0-47.0) % MCV (80.0-98.0) fL MCH (27.0-33.0) pg MCHC (31.0-35.0) g/dl RDW (11.0-16.0) % Plt Count (160-400) X10*3/uL MPV (9.4-12.3) fL Immature Gran % (Auto) (0.0-0.4) % Neut % (Auto) (45-73) % Lymph % (Auto) (20-40) % Davis % (Auto) (2-11) % Eos % (Auto) (0-4) % Baso % (Auto) (0-2) % Lymph # (Auto) (1.2-4.9) X10*3/uL Davis # (Auto) (0.1-1.2) X10*3/uL Eos # (Auto) (0.0-0.4) X10*3/uL Baso # (Auto) (0.0-0.2) X10*3/uL Abs Immat Gran (auto) (0.00-0.03) X10*3/uL Absolute Neuts (auto) (2.0-8.3) x10*3/uL Absolute Nucleated RBC (0.0-0.012) X10*3/uL Nucleated RBC % (auto) (0.0-0.2) /100WBC PT 10.6 (10.0-13.1) SEC INR 0.9 (0.9-1.1) Sodium 140 (135-145) mmol/L Potassium 3.9 (3.3-5.1) mmol/L Chloride 107 (96-108) mmol/L Carbon Dioxide 21 L (22-29) mmol/L Anion Gap 16 (12-20) BUN 10 (9-16) mg/dL Creatinine 0.78 (0.5-1.4) mg/dL Estim Creat Clear Calc 132.6 Estimated GFR > 60 Random Glucose 109 (60-115) mg/dL Calcium 9.4 (8.4-10.2) mg/dL Total Bilirubin 0.2 (0.0-1.0) mg/dL AST 10 (5-31) U/L ALT 12 (0-31) U/L Alkaline Phosphatase 77 (39-117) U/L Troponin I High Sens (<3.5-17.0) ng/L Total Protein 6.9 (6.5-8.0) g/dL Albumin 4.3 (3.5-5.0) g/dL COVID-19 (MIGUELINA) (Negative) COVID-19 Clin Com Independent Interpretation I performed an independent interpretation of an: EKG Interpretation: Vent. Rate: 081 BPM ? ? Atrial Rate: 081 BPM P-R Int: 144 ms? QRS Dur: 072 ms QT Int: 362 ms ? ? ? P-R-T Axes: 042 003 022 degrees QTc Int: 420 ms ? Normal sinus rhythm with sinus arrhythmia Normal ECG No previous ECGs available Electronically Signed By:SHANTANU TRENT Dictated By: Shantanu Trent MD Signed By: Electronically signed by Shantanu Trent MD 04/23/22 1322 Radiology Impression Radiologist Impression: My interpretation is in agreement with the radiologist's impression of these imaging studies. EXAMINATION: CT HEAD WITHOUT CONTRAST CLINICAL INFORMATION: Headache and dizziness COMPARISON: None. TECHNIQUE: Contiguous axial imaging was performed from the skull base to vertex without intravenous contrast. This CT examination was performed using dose optimization techniques as appropriate, variously including the following: *? Automated exposure control *? Adjustment of mA and/or kV according to patient size (this includes techniques or standardized protocols for targeted exams where dose is matched to indication/reason for exam; i.e. extremities or head) Use of iterative reconstruction technique DLP: 661 mGy-cm. FINDINGS: There is no evidence of acute intracranial hemorrhage or territorial infarction. No abnormal mass effect or midline shift is seen. Kruger to white matter differentiation is well preserved. No extra-axial fluid collections are identified. No hydrocephalus. No significant volume loss. There is no abnormal attenuation within the brain parenchyma. The osseous structures and soft tissues are normal. The mastoid air cells and visualized portions of the paranasal sinuses are well aerated. ? CT/CT head/brain wo IV con IMPRESSION: No acute intracranial pathology. Dictated By: Markos Mccormick MD Signed By: Electronically signed by Markos Mccormick MD 04/23/22 1522 EXAMINATION: XR CHEST CLINICAL INFORMATION: Chest pain. COMPARISON: 08/30/2010 chest radiograph. TECHNIQUE: Frontal view of the chest was obtained. FINDINGS: No significant abnormality is noted involving the heart, lungs, mediastinum, bony thorax or soft tissues. XR/XR chest 1V IMPRESSION: No acute cardiopulmonary process. ? Dictated By: Tommy Romero MD Signed By: Electronically signed by Tommy Romero MD 04/23/22 0952 Critical Care Time Critical Care Time Critical Care Time: Yes Total Critical Care Time: 30 Attestation: I spent 30 minutes of Critical Care Time with this patient. This does not include time spent on separately reported billable procedures. Discharge Plan Discharge Clinical Impression: Migraine Patient Disposition: Home, Self-Care Instructions: Migraine Headache (ED) Additional Instructions: Follow up with your primary care provider and your neurologist. Return to the emergency department immediately if your symptoms worsen or if you develop any dizziness, shortness of breath, difficulty breathing, chest pain, blurry vision, loss of vision, nausea, vomiting, abdominal pain, fever, chills, back pain, or any other complaints. Show this GoodRx information to your pharmacy to decrease the cost of your previously prescribed Firoicet 20 capsules 50mg/300mg/40mg ($157.10 - $160.10) [facility] [id number] [id number] Prescriptions: No Action ketorolac 10 mg tablet 10 mg PO TID PRN (Reason: pain) Qty: 10 0RF Rx Instructions: Do not use NSAIDs/ibuprofen/Aleve with this medication, only Tylenol for breakthrough pain amoxicillin-pot clavulanate 875-125 mg tablet 1 tab PO BID Qty: 14 0RF naproxen 500 mg tablet 500 mg PO BID PRN (Reason: pain) 7 Days Qty: 14 0RF dlekmyxbmi-kwxgntsexogxh-vyvt [Fioricet] 50-300-40 mg capsule 1 cap PO Q6H PRN (Reason: pain) 5 Days Qty: 20 0RF Referrals: [facility] [place] Neuro/Sleep [Provider Group] Uday Nicole III, MD [Primary Care Provider] - Stand Alone Forms: Work/School Release Interventions: ED Discharge Assessment Last Done: 04/23/22 16:44 Print Language: Armenian
[2022-04-23] MEDS: ondansetron HCL 4 MG/2 ML VIAL IVPUSH (13:26)
[2022-04-23] MEDS: HYDROmorphone HCl 1 MG/ML SYRINGE IVPUSH (13:26)
[2022-04-23 13:27] VITALS: BP 112/65; PULSE 83; RESP 20; O2SAT 100
[2022-04-23] MEDS: 0.9 % Sodium Chloride 1,000 ML 999 ML IV (13:27)
[2022-04-23] MEDS: dexAMETHasone sod phosphate 10 MG/ML VIAL IVPUSH (14:18)
[2022-04-23] MEDS: Magnesium Sulfate/D5W 1 GM/100 ML PIGGYBACK IV (14:18)
[2022-04-23] MEDS: Butalb/Acetamin/Caff 50/325/40 TABLET 1 TAB PO (15:50)
--- NOTE | 2022-04-23 15:52 | PC.NURSE ---
Pt continues to have 8/10 headache at this time. Resting quietly in room, call garcia in reach
[2022-04-23 16:00] VITALS: BP 117/61; PULSE 69; RESP 16; TEMP 36.8; O2SAT 98
--- NOTE | 2022-04-23 16:32 | MHC.EDTECH ---
this pct assumed care of pt at 1500 ,rounding done ,vitals sign taken pt waiting for discharge paperwork .
== END 2022-04-23 17:06 | disposition home or self-care (01) ==
PROVIDERS: Emergency Provider Emergency Medicine; PCP Internal Medicine
DX: G43.909 Migraine, unspecified, not intractable, without status migrainosus (principal); R07.89 Other chest pain; M79.642 Pain in left hand; Z20.822 Contact with and (suspected) exposure to COVID-19; Z20.828 Contact with and (suspected) exposure to other viral communicable diseases; Z79.899 Other long term (current) drug therapy
CPT/HCPCS: 70450; 71045; 80053; 84484; 85025; 85610; 87635; 93005; 96361; 96365; 96375; 99284; 99285; J1100; J1170; J2405; J3475

== ENCOUNTER 2025-02-08 14:58 | Outpatient (AMB) | payer BC, SELFPAY ==
--- NOTE | 2025-02-08 15:22 | MHC.OFFVIS ---
Intake Visit Reasons: 6M F/U Allergies No Known Allergies Allergy (Unverified 02/08/25 15:25) Medication List - Last Reconciled 02/08/25 by Kimberley Seay CNP amoxicillin-pot clavulanate 875-125 mg 1 tab PO BID qlljcwrzao-ymxvrijqkrqxi-offc 50-300-40 mg (Fioricet) 1 cap PO Q6H PRN 5 days famotidine 20 mg PO BID gabapentin 300 mg PO TID ketorolac 10 mg PO TID PRN levothyroxine mcg PO naloxone 4 mg/actuation intranasal naproxen 500 mg PO BID PRN 7 days oxycodone ER (OxyContin) 20 mg PO BID oxycodone-acetaminophen 10-325 mg 1 tab PO QID pantoprazole 40 mg PO DAILY phentermine 37.5 mg PO QAM ubrogepant (Ubrelvy) mg PO HPI Comments Details: Migraines increased this month from about 2/month to about 10/month. Ubrelvy as needed helps. 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 Sleep was also not so good. She stopped propranolol and topiramate in early 2024, no increase in migraines after stopping medications, getting migraine 2-4x/month. No side effects with topiramate or propranolol. Previously, migraines were happening up to 2-3x/week. Triggers include stress. No further dizziness since stopping trazodone and amitriptyline. History of migraines and chronic low back pain since 20 on large doses of narcotics. The migraines started in 2006, about 1-3x/month and increased in frequency to 3-4/ wk in 04/2022. She went to ER in 04/2022 for right head pain and pressure. Head CT normal. 90% behind right eye and lasts several hrs and if behind in the neck it lasts an hour. No triggers have been identified. It starts with a tingling sensation in the nose followed by pressure behind the right eye and a predominantly right-sided pressure and throbbing type headache with dizziness, photophobia, sonophobia and nausea and vomiting. It is helped by lying down. She has always had insomnia and gets 5 hrs sleep. She has tried sumatriptan 100mg in the past without success. She has lumbar disc disease that is not surgical. [facility] Medical History Degenerative disc disease Dental decay Social History Patient Tobacco Use Status: Tobacco use Unknown Review of Systems Const Denies chills, Denies daytime sleepiness, Reports difficulty sleeping, Denies fatigue, Denies fever(s), Denies frequent falls, Reports headache(s), Denies increased appetite, Denies poor appetite, Denies snoring, Denies weakness, Denies weight gain and Denies weight loss Eyes Denies loss of vision ENT Denies vertigo, Denies dizziness, Reports headache(s) and Denies neck pain Card Denies chest pain at rest, Denies chest pain with activity, Denies syncope, Denies leg edema, Denies palpitations, Denies dyspnea and Denies dyspnea on exertion Resp Denies cough, Denies dyspnea, Denies dyspnea on exertion and Denies snoring GI Denies abdominal pain, Denies constipation, Denies heartburn, Denies diarrhea and Denies nausea Denies urinary frequency, Denies urinary incontinence and Denies urinary urgency Musc Denies abnormal gait, Denies back pain, Denies myalgias, Denies arthralgias, Denies neck pain, Denies numbness and Denies tingling Neuro Denies abnormal gait, Denies vertigo, Denies dizziness, Denies syncope, Denies frequent falls, Reports headache(s), Denies lack of coordination, Denies loss of vision, Denies memory loss, Denies numbness, Denies Other visual disturbances, Denies restless legs, Denies seizure-like activity, Denies tingling, Denies paresthesias, Denies tremor(s) and Denies weakness Psych Denies anxiety, Denies depression, Denies auditory hallucinations, Denies memory loss and Denies visual hallucinations Endo Denies fatigue and Denies palpitations Physical Exam Const Other: General Appearance:? normal, in no acute distress. Heart:? S1, S2 normal, no murmurs. Lungs:? clear anteriorly and posteriorly. Musculoskeletal:? normal. Extremities:? no edema. Psych:? alert, oriented, cognitive function intact, cooperative with exam. Neuro Other: Abnormal Neurological Findings:?none.? Mental Status: alert and oriented X 3. Normal attention, orientation, memory, and affect. Cranial Nerves: Pupils are equal, round, and reactive to light. External ocular muscles are intact. Visual malone are full, no ptosis. Face is symmetrical, no facial weakness or droop. Facial sensations are normal. Tongue protrudes in midline. Palate elevates symmetrically. Shoulder shrugging is normal Motor Examination: Normal muscle tone, bulk and strength. No atrophy or fasciculations. No drift of the extended upper extremities. DTR 2+. Plantars are flexor. Sensory Exam: Normal light touch, temperature, pinprick, vibration, and joint-position sensations. Rhomberg sign is absent. Coordination: No ataxia. No titubation. Gait Exam: Within normal limits. Cerebellar Signs: Vgufzi-lv-hety is okay. Extrapyramidal System: No tremor, rigidity with normal facial expressions. No bradykinesia. No bradyphrenia. Normal arm swing and posture. No propulsion or retropulsion. Speech: Normal. Assessment & Plan Assessment & Plan (1) Migraine: Code(s): G43.909 - Migraine, unspecified, not intractable, without status migrainosus Category: Medical Qualifiers: Migraine type: unspecified Status migrainosus presence: without status migrainosus Intractability: not intractable Qualified Code(s): G43.909 - Migraine, unspecified, not intractable, without status migrainosus Plan: Continue Ubrelvy 100mg 1 tablet as needed for migraine #10 for 30 days. Discussed option of restarting preventive medication - prefers to hold off at this time and see if headaches improve over the next few weeks. Follow up in 6 weeks or sooner as needed. Plan Meds tried: amitriptyline (dizziness), propranolol, topiramate, sumatriptan, rizatriptan Coding Level of Care Code Est Pt Level 4 (87786) Diagnoses Migraine without status migrainosus, not intractable, unspecified migraine type G43.909 Migraine type: unspecified Status migrainosus presence: without status migrainosus Intractability: not intractable
--- OUTSIDE RECORDS SUMMARY | 2025-02-08 16:14 | XMS_ITS ---
[facility] Name [facility] Organization Unknown Encounters Encounter Type Encounter Reason Primary Diagnosis Location Date Ambulatory [facility] Laboratory 0 10/31/2023 Care Team Organization Name Specialty Phone Email Start Date End Da [facility] AC 10/06/2024 01/11/2025 [facility] 11/04/19 24 [facility] 12/25/2021
--- OUTSIDE RECORDS SUMMARY | 2025-02-08 16:14 | XMS_ITS | Clinical Summary ---
Author Organization [facility] [address] [place] [address] [place] [phone] Phone Care Team Providers Care Grocery Manager Name Role Phone Uday Nicole MD Primary Care Provider [phone] Allergies No known active allergies Medications fluticasone propionate (FLONASE) 50 mcg/actuation nasal spray 2 Sprays by Nasal route daily. 3 Active ubrogepant (UBRELVY) 100 mg tablet Take by mouth. Activ e ergocalciferol (VITAMIN D-2) 1,250 mcg (50,000 unit) capsule 4 Active gabapentin (NEURONTIN) 300 mg capsule Take 1 capsule (300 mg total) by mouth 3 (three) times a day. 90 capsule 5 5 Active levothyroxine (SYNTHROID, LEVOTHROID) 112 mcg tablet TAKE 1 TABLET BY MOUTH DAILY FRIDAY THROUGH FRIDAY, TAKE 2 TABLETS BY MOUTH ON SUNDAYS ONLY. 102 tablet 2 5 Active Enulose solution TAKE 15-30 ML BY MOUTH ONCE A DAY 2700 mL 1 5 Active naloxone (NARCAN) 4 mg/0.1 mL nasal spray Give 4 mg (1 spray) into one nostril. May repeat every 2-3 minutes if needed, alternating nostrils, until medical assistance becomes available. 2 each 5 Active oxyCODONE (OxyCONTIN) 20 mg 12 hr abuse-deterren t tablet Take 1 tablet (20 mg total) by mouth 2 (two) times a day. Do not crush, chew, or split. Max Daily Amount: 40 mg 58 tablet 5 Active oxyCODONE-acet aminophen (PERCOCET) 10-325 mg per tablet Take 1 tablet by mouth 4 (four) times a day. Max Daily Amount: 4 tablets 112 tablet 5 Active oxyCODONE (OxyCONTIN) 20 mg 12 hr abuse-deterren t tablet Take 1 tablet (20 mg total) by mouth 2 (two) times a day. Do not crush, chew, or split. Max Daily Amount: 40 mg 56 tablet 5 01/20/20 25 Discontin ued(Reord er) oxyCODONE-acet aminophen (PERCOCET) 10-325 mg per tablet Take 1 tablet by mouth 4 (four) times a day. Max Daily Amount: 4 tablets 112 tablet 5 01/27/20 25 Discontin ued(Reord er) Active Problems Problem Noted Date Diagnosed Date Back pain 12/11/2023 Chronic headaches 12/11/2023 Depression 12/11/2023 Hypothyroid 12/11/2023 Insomnia 12/11/2023 Class 3 severe obesity with body mass index (BMI) of 40.0 to 44.9 in adult 12/11/2023 Lumbar disc herniation with radiculopathy 2023 Overview (12/11/2023): Last Assessment & Plan: Patient describes constant right calf numbness for about 2 months, the numbness in the lateral legs started approximately 1 year ago, but then in July 2023 she slid, landed on her butt down a couple stairs, after that had severe pain in her right hip and posterior lateral leg all the way down to the toes. Symptoms were worse in the lateral foot, her toes felt they were curled under. She did 7 days of oral steroids in July that helped the severe pain but she still has some persistent pain in the right leg 06/26. She also has been living with chronic low back pain for about 10 years, this started after giving in 2010. For about 8 years she has been on oxycodone, doses have increased over the years, currently she is on oxycodone 20 mg, OxyContin twice daily for her back pain. She is working with a bariatric surgeon to try to lose weight to see if that helps her chronic back pain. She has had multiple cortisone injections for her low back pain but they have not helped her. She has not recently done physical therapy for the new right leg pain and numbness. She denies any left leg symptoms, bowel bladder incontinence. Patient had MRI lumbar spine 08/26/2023 at [facility] with L5-S1 large right paracentral disc herniation with extruded disc fragment behind the S1 body on the right. It was not seen on her prior MRI 07/02/2022. She has L5-S1 disc desiccation and loss of disc height. L4-5 is a dark disc with annular tear, but still a tall disc. I reviewed MRI imaging from 2023 and 2022 with the patient in detail on the computer. Dr. Suárez reviewed her MRI today as well. Ms. Hernadez has right leg numbness and pain, with a large right L5-S1 paracentral disc herniation and extruded disc fragment down behind the S1 body. We discussed the difference between chronic low back pain and lumbar degenerative disc disease, with radicular pain from lumbar disc herniation, the different treatment options for both, including PT, injections, acupuncture, surgery. Patient states she is working on weight loss with her bariatric surgeon to try to help her chronic low back pain, is not interested in lumbar fusion at this time. However we focused more so on the new right L5-S1 disc herniation causing right leg numbness and pain, discussed that she may have permanent numbness in the leg even with minimally invasive discectomy, however we would not know until after surgery. We talked about right L5-S1 minimally invasive discectomy, risks and benefits in detail, including but not limited to need for general anesthesia, damage to a nerve root causing weakness, bleeding/hematoma, infection, no improvement in symptoms postop. Hibiclens body wash and instructions given to patient. She will think about things and call if she would like to schedule surgery. Dr. Suárez agrees with plan to try right L5-S1 minimally invasive discectomy, told patient she may have permanent numbness in the right leg. All questions answered. Snoring 12/07/2020 Overview (12/11/2023): 11/2020 Home Sleep Study did not reveal sleep apnea or nocturnal hypoxia. Lumbar disc disease 09/11/2017 Vitamin D deficiency 12/31/2012 Encounters Date Type Department Care Team Description 12/10/2024 9:30 AM EDT Office Visit Adult Medicine [address] [phone] Susie Clark PA Encounter for long-term (current) use of medications (Primary Dx); Lumbar disc herniation with radiculopathy; Chronic bilateral low back pain with right-sided sciatica; Hypothyroidism, unspecified type; Vitamin D deficiency; History of gastric surgery from Last 3 Months Immunizations Immunization Administration Dates Next Due DTP 05/17/1994, 1,1989,06/03,1989 Hepatitis B (Wgppcsz-I-Fmtlp , Recombivax HB-Adult) 19yo and older 10/08/2013 Hepatitis B Pediatric (Enger ix B; Recombivax HB) to less than 20 yo 04/26/2002,11/06/2001,04/13/1999 HiB PRP-T conjugate (Acthib, Hiberix) 6wks and older 04/09/1990 IPV Inactivated polio (Ipol) 6wks and older 05/17/1994 Influenza trivalent, with pr eservative (Fluzone; Afluria) 6mo and older 01/31/2015,12/28/2013,12/30/2012,12/24 MMR, measles mumps and rubel la Live (Priorix; M-M-R II) 12mo and older 05/17/1994,04/09/1990 Meningococcal MCV4P 09/30/2013,11/06/2006 OPV 01/29/1993, 0,1989,04/01 PPD Test 09/28/2013 Td Tetanus diptheria (Tdvax) 7yo and older 04/13/1999 Tdap Tetanus diptheria acell ular pertussis (Boostrix; Adacel) 7yo and older 12/25/2011,11/06/2006 Surgical History Surgery Date Site/Laterality Comments SECTION PROCEDURE: HISTORICAL DELIVERY; COMMENT: 08/28/2010 OVARIAN CYST REMOVAL 05/19/2011 PROCEDURE: OR OVARIAN CYSTECTOMY UNI/BI; COMMENT: right TONSILLECTOMY PROCEDURE: HISTORICAL TONSILLECTOMY OTHER SURGICAL HISTORY gastric sleeve 12/2023 Medical History Medical History Date Comments Hypothyroid DX:Hypothyroid Depression 2010 DX:Depression; C OMMENT: post- Insomnia DX:Insomnia Chronic headaches DX:Chronic hea daches Back pain DX:Back pain Family History Medical History Relation Name Comments Other: stomach cancer Maternal Grandfather Hypertension Mother Lymphoma Paternal Grandfather Other: liver cancer Paternal Grandmother Cervical cancer Sister 1 Leukemia Uncle 1 paternal uncle Other: renal cancer Uncle 2 paternal uncle Blindness Neg Hx Cataracts Neg Hx Glaucoma Neg Hx Macular degeneration Neg Hx Strabismus Neg Hx Relation Name Status Comments Brother 1 Alive Brother 2 Alive Father Alive HTN, Maternal Grandfather Other unknown Maternal Grandmother anxiety , depression, insomnia, COPD, PNA, thyroid, [place] Mother Alive HTN, drug probl em, asthma, anxiety Paternal Grandfather lung ca ncer Paternal Grandmother Alive well Sister 1 Sister 2 Alive depression/anxi ety Sister 3 Alive depression Sister 4 Alive Son Alive well Uncle 1 Uncle 2 Uncle 3 Social History Tobacco Use Types Packs/Day Years Used Date Smoking Tobacco: Never Smokeless Tobacco: Never Tobacco Cessation:Counseling Given: Not Answered Alcohol Use Standard Drinks/Week Comments Yes 0 (1 standard drink = 0.6 oz pur e alcohol) social Housing Instability Answer Date Recorde d Are you worried that in the next 2 months you may not have stable housing? No 02/25/2024 Food Access & Nutrition Answer Date Rec orded Do you have access to a vari ety of food including fruits and vegetables? Yes 02/25/2024 Access to Healthcare Answer Date Record ed Within the last 3 months, ho w many times did you visit the emergency department for your medical care? 0 02/25/2024 Health Literacy Answer Date Recorded How often do you need to hav e someone help you when you read instructions, pamphlets, or other written material from your doctor or pharmacy? Never 02/25/2024 Caregiver: How often do you need to have someone help you when you read instructions, pamphlets, or other written material from your doctor or pharmacy? Not on file 02/25/2024 Financial Risk Answer Date Recorded How hard is it for you to pa y for the very basics like food, housing, medical care, and air conditioning / heating? Hard 02/25/2024 Transportation Answer Date Recorded Has the lack of transportati on kept you from meetings, work, or from getting things needed for daily living? No Has the lack of transportati on kept you from medical appointments or from getting medications? No 02/25/2024 Social Isolation Answer Date Recorded How often do you feel lonely or isolated from th ose around you? Never 02/25/2024 Food Risk Answer Date Recorded Within the past 12 months we worried whether our food would run out before we got money to buy more. Never true 02/25/2024 Within the past 12 months th e food we bought just didn't last and we didn't have money to get more. Never true 02/25/2024 Dependent Care Answer Date Recorded Do you need help finding or paying for care for your loved ones. For example, children's nursery assistant or elderly care for an older adult? No 02/25/2024 Education Answer Date Recorded Do you think completing more education or training, like finishing a GED, going to college, or learning a trade, would be helpful for you? No 02/25/2024 Employment and Income Answer Date Recor ded During the last four weeks, have you been actively looking for work? No 02/25/2024 Living Situation Answer Date Recorded What is your living situation? 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 Not on file Not on file Last Filed Vital Signs Vital Sign Reading Time Taken Comments Blood Pressure 110/70 12/10/2024 9:23 AM EDT Pulse 104 12/10/2024 9:23 AM EDT Temperature 36.4 C (97.6 F) 12/10/2024 9:23 AM EDT Respiratory Rate 14 08/27/2024 9:25 AM EDT Oxygen Saturation 92% 12/10/2024 9:23 AM EDT Inhaled Oxygen Concentration - - Weight 93.1 kg (205 lb 4.8 oz) 12/10/2024 9:23 A M EDT Height 170.2 cm (5' 7.01 ) 12/10/2024 9:23 AM ED T Body Mass Index 32.15 12/10/2024 9:23 AM EDT Plan of Treatment Upcoming Encounters Date Type Department Care Team (Late st Contact Info) Description 03/25/2025 9:45 AM EST Office Visit Adult Medicine [address] [phone] Uday Nicole MD [address] [place] [phone] 07/01/2025 9:45 AM EDT Office Visit Adult Medicine [address] [phone] Uday Nicole MD [address] [place] [phone] Health Maintenance Due Date Last Done Comments Opioid Substance Agreement 1989 Pain Assessment 1989 Cervical Cancer Screening: Pap Smear 12/13/2013 12/13/2010 HPV Vaccines (1 - 3-dose SCDM series) 01/31/2016 DTaP,Tdap,and Td Vaccines (9 - Td or Tdap) 12/24/2021 12/25/2011, 11/06/2006, 04/13/1999, Additional history exists HIV Screening 01/15/2022 Hepatitis C Screening 01/15/2022 COVID-19 Vaccine ( season) 2024 Social Influencers of Health Screening 02/24/2025 02/25/2024 Drug Screen 08/27/2025 08/27/2024 Naloxone Order 12/10/2025 12/10/2024 Cholesterol Screening (Lipid Panel) 03/02/2029 03/02/2024, 06/30/2023, 06/30/2023 RSV Immunization Adult Patients (1 - 1-dose 75+ series) 01/31/2064 HIB Vaccines Aged Out 04/09/1990 No longer eligi ble based on patient's age to complete this topic IPV Vaccines Completed 05/17/1994, 01/17, 1989, Additional history exists MMR Vaccines Completed 05/17/1994, 04/09/1990 Meningococcal ACWY Vaccine Completed 09/30/2013, Hepatitis B Vaccines Completed 10/08/2013, 04/26/2002, 11/06/2001, Additional history exists Influenza Vaccine Discontinued 01/31/2015, , 12/30/2012, Additional history exists Depression Screening Completed 02/25/2024 Hepatitis A Vaccines Aged Out No long er eligible based on patient's age to complete this topic Meningococcal B Vaccine Aged Out No l onger eligible based on patient's age to complete this topic Pneumococcal Vaccine: Pediatrics (0 to 5 Years) and At-Risk Patients (6 to 49 Years) Aged Out No longer eligible based on patient's age to complete this topic RSV Immunization Patients Under 20 months Aged Out No longer eligible based on patient's age to complete this topic Varicella Vaccines Aged Out No longer eligible based on patient's age to complete this topic Procedures Procedure Name Priority Date/Time Associated Diagnosis Comments DRUG ABUSE SCREEN 8A PANEL, URINE Routine 08/27/2024 10:31 AM EDT 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 Barbiturate Screen, Ur Negative Negative LAB CHEMISTRY METHOD 5 1:05 PM EDT [facility] Benzodiazepine Screen, Ur Negative Negative LAB CHEMISTRY METHOD 5 1:05 PM EDT [facility] Cocaine Screen, Ur Negative Negative LAB CHEMISTRY METHOD 5 1:05 PM EDT [facility] Opiate Screen, Ur Positive(A ) Negative LAB CHEMISTRY METHOD 5 1:05 PM [facility] Cannabinoid (THC) Screen, Ur Negative Negative LAB CHEMISTRY METHOD 5 1:05 PM EDT [facility] Comment:Specimens from patie nts taking pantoprazole sodium (Protonix) have been shown to produce false positive results. Oxycodone Screen, Ur Positive(A ) Negative LAB CHEMISTRY METHOD 5 1:05 PM EDT [facility] Fentanyl, Ur Negative Negative LAB CHEMISTRY METHOD 5 1:05 PM [facility] Urine Urine specimen obtained by clean catch procedure / Unknown Non-blood Collection / Unknown 08/27/2024 10:31 AM EDT 08/27/2024 10:31 AM EDT Narrative [facility] - 08/27/2024 1:05 PM EDT Assay cutoffs: Amphetamines 1000 ng/mL Barbiturates 200 ng/mL Benzodiazepines 200 ng/mL Cocaine 300 ng/mL Fentanyl 1 ng/mL Opiates 300 ng/mL Oxycodone 100 ng/mL THC 50 ng/mL Semi-quantitative assay for screening purposes only. Unconfirmed screening result should not be used for non-medical purposes. *ALTERNATE METHOD CONFIRMATION DONE UPON REQUEST ONLY* Susie GALINDO LAB URINE ORDERABLES Fi nal Result [facility] [address] [place] [address], * (ABNORMAL) Lipid panel with reflex to direct LDL (03/02/2024 12:38 PM EST) Cholesterol 173 0 - 200 mg/dL LAB CHEMISTRY METHOD 03/02/2024 9:03 PM EST [facility] Triglycerides 90 0 - 150 mg/dL LAB CHEMISTRY METHOD 03/02/2024 9:03 PM EST [facility] HDL 47 >=40 mg/dL LAB CHEMISTRY METHOD 03/02/2024 9:03 PM [facility] LDL Calculated 108(H) 0 - 100 mg/dL LAB CHEMISTRY METHOD 03/02/2024 9:03 PM [facility] VLDL Cholesterol Wilman 18 mg/dL LAB CHEMISTRY METHOD 03/02/2024 9:03 PM [facility] Non HDL Chol. (LDL+VLDL) 126 <145 mg/dL LAB CHEMISTRY METHOD 03/02/2024 9:03 PM [facility] Chol/HDL Ratio 3.7 0.0 - 4.4 LAB CHEMISTRY METHOD 03/02/2024 9:03 PM [facility] Blood Venous blood specimen / Unknown Venipuncture / Unknown 03/02/2024 12:38 PM EST 03/02/2024 12:38 PM EST Susie GALINDO LAB BLOOD ORDERABLES Fi nal Result [facility] [address] [place] [address], * Pap Smear (12/13/2010) Pap smear No Interpretation , Abstracted Historical Provider HEALTH MAINTENANCE Final Result from Last 3 Months or Most Recently Relevant to Health Maintenance Insurance [facility] Care Teams Grocery Manager Relationship Specialty Start Date End Date Uday Nicole MD PCP - General Internal Medicine 10/20/13
--- OUTSIDE RECORDS SUMMARY | 2025-02-08 16:15 | XMS_ITS | Encounter Summary ---
Author Organization [facility] Address [address] [place] [address] Phone Care Team Providers Care Staff Development Nurse Name Role Phone Jose Duenas Primary Care Provider [phone] Encounter Details Date Type Department Care Team (Late st Contact Info) Description 10/03/2016 Conversion Encounter [facility] [address] [place] [address] Social History Tobacco Use Types Packs/Day Years Used Date Smoking Tobacco: Never Assessed Comments Unknown Sex and Gender Information Value Date Recorded Sex Assigned at Not on file Legal Sex Female 4:23 PM EDT Gender Identity Not on file Sexual Orientation Not on file documented as of this encounter Plan of Treatment Not on file documented as of this encounter Visit Diagnoses Not on filedocumented in this encounter Care Teams Staff Development Nurse Relationship Specialty Start Date End Date Jose Duenas [address] [place] [address] PCP - General 09/27/16 documented as of this encounter
--- OUTSIDE RECORDS SUMMARY | 2025-02-08 16:15 | XMS_ITS | Clinical Summary ---
Author Organization [facility] Address [address] [place] [address] Phone Care Team Providers Care Boner Meat Name Role Phone Jose Duenas Primary Care Provider [phone] Immunizations Immunization Administration Dates Next Due DTP 05/17/1994, 1,1989,06/03,1989 Hep B, ped/adol 04/26/2002,11/06/2001,04/13/1999 Hib (PRP-T) 04/09/1990 IPV 05/17/1994 MMR 05/17/1994,04/09/1990 Meningococcal Conj (Menactra) MCV4P 11/06/2006 OPV 01/29/1993, 0,1989,04/01 Td (adult) (MBL), 2 Lf tetan us toxoid, PF, adsorbed 04/13/1999 Tdap 11/06/2006 Family History Relation Name Status Comments Brother 1 Alive Brother: Alive and well, Alive and well Brother 2 Alive Brother: Alive and well, Alive and well Father Alive Father: Alive a nd well Mother Alive Mother: Alive a nd well Other 1 Alive ? M or F: Alive and well, Alive and well Other 2 No family histo ry of ADD/ADHD, No family history of Autism, No family history of Seizure disorder, No family history of Strabismus/amblyopia, Family history of Obesity, No family history of Diabetes mellitus, No family history of Sudden /NH under age 55, No family history of Elevated cholesterol, No family history of Developmental dislocation of hip, No family history of Migraines, No family history of Asthma, No family history of Deafness Sister Alive Sister: Alive a nd well Social History Tobacco Use Types Packs/Day Years Used Date Smoking Tobacco: Never Assessed Comments Unknown Sex and Gender Information Value Date Recorded Sex Assigned at Not on file Legal Sex Female 4:23 PM EDT Gender Identity Not on file Sexual Orientation Not on file Plan of Treatment Health Maintenance Due Date Last Done Comments Varicella Vaccines (1 of 2 - 13+ 2-dose series) 2002 HPV Vaccines (1 - 3-dose SCDM series) 01/31/2016 DTaP,Tdap,and Td Vaccines (7 - Td or Tdap) 11/06/2016 11/06/2006, 04/13/1999, 05/17/1994, Additional history exists Influenza Vaccines (#1) 2024 COVID-19 Vaccine ( season) 2024 HIB Vaccines Aged Out 04/09/1990 No longer eligi ble based on patient's age to complete this topic IPV Vaccines Completed 05/17/1994, 01/17, 1989, Additional history exists MMR Vaccines Completed 05/17/1994, 04/09/1990 Hepatitis B Vaccines Completed 04/26/2002, 11/06/2001, 04/13/1999 Meningococcal Vaccine Completed 11/06/2006 Hepatitis A Vaccines Aged Out No long er eligible based on patient's age to complete this topic Men B Vaccine Aged Out No longer elig ible based on patient's age to complete this topic Pneumococcal Vaccine Aged Out No long er eligible based on patient's age to complete this topic Care Teams Boner Meat Relationship Specialty Start Date End Date Jose Duenas [address] [place] [address] PCP - General 09/27/16
== END 2025-02-08 15:30 | disposition home or self-care (01) ==
LOC: HO.HSM 14:59
PROVIDERS: PCP Internal Medicine; Referring Provider Internal Medicine; Visit Provider Registered Nurse
DX: G43.909 Migraine, unspecified, not intractable, without status migrainosus (principal)
CPT/HCPCS: 99214